=== PATIENT | male | born 1950 | race Caucasian/White ===

== ENCOUNTER 2016-12-28 13:45 | Inpatient (IN) | payer MEDICARE ==
[~2016-12-28] VITALS: Ht 177.8 cm; Wt 52.6 kg
[2016-12-28] VITALS: BP 96/58
[2016-12-28 14:43] LABS: Hematocrit 45.5 % (41.0-53.0); Hemoglobin 15.4 g/dL (13.5-17.5); Mean Corpuscular Hemoglobin 31.5 pg (28.0-32.0); Mean Corpuscular Hgb Conc. 33.9 g/dL (32.0-36.0); Mean Platelet Volume 9.4 fL (7.4-10.4); Platelet Count (auto) 163 10^3/uL (140-450); Red Cell Distribution Width 15.7 % (11.6-16.0); SUSPECT VIEW TRANSMISSION
[2016-12-28] MEDS ORDERED: methylPREDNISolone SOD SUCC 125 MG/2 ML VL IV ONE (14:45)
[2016-12-28] MEDS ORDERED: cefTRIAXone 1GM/50ML D5W 50 ML IV ONE (14:45)
[2016-12-28] MEDS ORDERED: MORPHINE SULF INJ 2 MG/ML SYRINGE 1ML ONE (14:52)
[2016-12-28] MEDS ORDERED: ONDANSETRON HCL 4 MG/2 ML VIAL ONE (14:53)
[2016-12-28 14:56] LABS: INR 1.11 (0.9-1.15); Partial Thromboplastin Time 27.3 sec (22.64-33.71); Prothrombin Time 11.4 sec (9.37-12.3)
[2016-12-28 15:03] LABS: Lactic Acid 3.7 mmol/L (0.4-2.0)
[2016-12-28 15:06] LABS: REFLEX LACTIC ACID YES OR NO YES
[2016-12-28 15:07] LABS: Albumin 2.3 g/dL (3.4-5.0); Alkaline Phosphatase 436 U/L (45-117); Anion Gap 15 (5-15); Aspartate Aminotransferase 316 U/L (15-37); BUN/Creatinine Ratio 31.9; Bilirubin, Total 2.5 mg/dL (0.2-1.0); Blood Urea Nitrogen 22 mg/dL (7-18); Calcium 7.9 mg/dL (8.5-10.1); Carbon Dioxide 27 mmol/L (21-32); Chloride 98 mmol/L (98-107); GFR African American 148 mL/min; GFR Non-African American 122 mL/min; Glucose 76 mg/dL (74-106); Magnesium 2.2 mg/dL (1.6-2.6); Potassium 4.4 mmol/L (3.5-5.1); Sodium 140 mmol/L (136-145); Total Protein 5.8 g/dL (6.4-8.2)
[2016-12-28] MEDS ORDERED: MORPHINE SULFATE 4 MG/ML SYRG IV ONE (15:15)
[2016-12-28] MEDS ORDERED: ONDANSETRON HCL 4 MG/2 ML VIAL IV ONE (15:15)
[2016-12-28] MEDS ORDERED: MORPHINE SULF INJ 2 MG/ML SYRINGE 1ML IV ONE (15:15)
[2016-12-28 15:25] LABS: Urine Bilirubin 1+ (Negative); Urine Blood Negative /uL (Negative); Urine Color Brown (Yellow); Urine Glucose Normal (Normal); Urine Ketone Negative (Negative); Urine Mucus FEW (None Seen); Urine Nitrite Negative (Negative); Urine RBC 1 /hpf (0 - 3); Urine Squamous Epithelial Cell FEW /hpf (<5); Urine pH 5.5 (5.0-8.0)
[2016-12-28 15:30] LABS: Metamyelocytes % 0; Myelocytes % 0; Promyelocytes % 0; Reactive Lymphocytes 0
[2016-12-28 15:50] LABS: Anisocytosis Moderate; Platelet Estimate Adequate
[2016-12-28 17:10] LABS: Lactic Acid 3.8 mmol/L (0.4-2.0)
[2016-12-28 17:11] LABS: REFLEX LACTIC ACID YES OR NO NO
[2016-12-28] MEDS ORDERED: PANTOPRAZOLE 40 MG TAB PO ONE (19:00)
[2016-12-28] MEDS ORDERED: ONDANSETRON HCL 4 MG/2 ML VIAL IV PRN (19:00)
[2016-12-28] MEDS ORDERED: TEMAZEPAM 15 MG CAP PO PRN (19:00)
[2016-12-28] MEDS ORDERED: VANCOMYCIN PER PHARMACY 0 MG IV SCH (19:00)
[2016-12-28] MEDS ORDERED: CLOPIDOGREL BISULFATE 75 MG TAB PO ONE (19:00)
[2016-12-28] MEDS ORDERED: ASPirin-EC 81 mg tab PO ONE (19:00)
[2016-12-28] MEDS ORDERED: NITROGLYCERIN 0.4 MG SL TAB SL PRN (19:00)
[2016-12-28] MEDS ORDERED: LORazepam 2MG/ML-1ML VIAL IV PRN (19:00)
[2016-12-28] MEDS ORDERED: ACETAMINOPHEN 325 MG TAB PO PRN (19:00)
[2016-12-28] MEDS ORDERED: DOCUSATE SOD 100 MG CAP PO PRN (19:00)
[2016-12-28] MEDS ORDERED: MORPHINE SULF INJ 2 MG/ML SYRINGE 1ML IV PRN ×2 (19:00)
[2016-12-28] MEDS ORDERED: VANCOMYCIN 1GM/250ML D5W 250 ML IV ONE (19:15)
[2016-12-28] MEDS: SODIUM CHLORIDE 0.9% 1,000 ML IV SCH (19:17)
[2016-12-28] MEDS: MULTIPLE VITAMIN TAB PO SCH (19:17)
[2016-12-28 19:39] LABS: Lactic Acid 6.6 mmol/L (0.4-2.0)
[2016-12-28 20:11] LABS: REFLEX LACTIC ACID YES OR NO YES
[2016-12-28 21:30] VITALS: BP 121/78
[2016-12-28] MEDS: BOOST PLUS 8 ounce PO SCH (22:00)
[2016-12-28] MEDS ORDERED: FAMOTIDINE 20 MG TAB PO SCH (22:00)
[2016-12-28] MEDS: ATORVASTATIN 20 MG TAB PO SCH (23:18)
[2016-12-28] MEDS: LEVETIRACETAM 500 MG TAB PO SCH (23:18)
[2016-12-28] MEDS: DEXAMETHASONE 4 MG TAB PO SCH (23:18)
[2016-12-29] VITALS (7 sets, daily range): BP systolic 96–120; BP diastolic 58–74
[2016-12-29] MEDS: IPRATROPIUM BROM 0.5 MG/2.5ML INH SOL NEB SCH ×4 (00:50→18:00)
[2016-12-29] MEDS: ALBUTEROL SULF 2.5 MG/0.5ML(0.5%) NEB SOLN NEB SCH ×4 (00:50→18:00)
[2016-12-29 05:02] LABS: Hematocrit 37.5 % (41.0-53.0); Hemoglobin 12.5 g/dL (13.5-17.5); Mean Corpuscular Hemoglobin 31.4 pg (28.0-32.0); Mean Corpuscular Hgb Conc. 33.4 g/dL (32.0-36.0); Mean Corpuscular Volume 94.2 fL (80.0-100.0); Mean Platelet Volume 8.9 fL (7.4-10.4); Platelet Count (auto) 142 10^3/uL (140-450); SUSPECT VIEW TRANSMISSION; White Blood Cell 22.4 10^3/uL (4.4-10.8)
[2016-12-29 05:09] LABS: Metamyelocytes % 0; Myelocytes % 0; Promyelocytes % 0; Reactive Lymphocytes 0
[2016-12-29 05:19] LABS: Albumin 1.8 g/dL (3.4-5.0); Calcium 7.7 mg/dL (8.5-10.1)
[2016-12-29 05:33] LABS: Bilirubin, Total 1.3 mg/dL (0.2-1.0); Total Protein 4.6 g/dL (6.4-8.2)
[2016-12-29 05:37] LABS: Potassium 4.5 mmol/L (3.5-5.1)
[2016-12-29 06:26] LABS: Platelet Estimate Adequate; RBC Morphology Normal
[2016-12-29] MEDS: cefTRIAXone 1GM/50ML D5W 50 ML IV SCH (08:35)
[2016-12-29] MEDS: BOOST PLUS 8 ounce PO SCH ×4 (08:35→21:42)
[2016-12-29] MEDS: MULTIPLE VITAMIN TAB PO SCH (09:40)
[2016-12-29] MEDS: DEXAMETHASONE 4 MG TAB PO SCH ×2 (09:40→21:41)
[2016-12-29] MEDS: ASPirin-EC 81 mg tab PO SCH (09:40)
[2016-12-29] MEDS: CLOPIDOGREL BISULFATE 75 MG TAB PO SCH (09:40)
[2016-12-29] MEDS: LEVETIRACETAM 500 MG TAB PO SCH ×2 (09:40→21:41)
[2016-12-29] MEDS: PANTOPRAZOLE 40 MG TAB PO SCH (09:41)
[2016-12-29] MEDS ORDERED: SPIRIVA IN SCH (10:00)
[2016-12-29] MEDS: SODIUM CHLORIDE 0.9% 1,000 ML IV SCH (11:38)
[2016-12-29] MEDS ORDERED: ENOXAPARIN SOD 40 MG/0.4 ML SYRINGE SC ONE (14:15)
[2016-12-29 14:36] LABS: B-Type Natriuretic Peptide 39.65 pg/mL (0-100)
[2016-12-29 14:50] LABS: Temperature: 22.7 C (20.0-25.0)
[2016-12-29] MEDS ORDERED: SODIUM CHLORIDE 0.9% 1,000 ML IV ONE (15:30)
[2016-12-29] MEDS ORDERED: IOHEXOL 350 MG/ML 100ML IJ ONE (16:10)
[2016-12-29] MEDS: VANCOMYCIN 750 MG in D5W 5% 250 ML IV SCH (20:33)
[2016-12-29] MEDS: HYDROcodone-ACET 5/325MG TAB PO PRN (21:41)
[2016-12-29] MEDS: ATORVASTATIN 20 MG TAB PO SCH (21:41)
[2016-12-30 04:56] VITALS: BP 118/66
[2016-12-30] MEDS: BOOST PLUS 8 ounce PO SCH ×4 (06:17→21:48)
[2016-12-30 09:00] VITALS: BP 107/61
[2016-12-30] MEDS: HYDROcodone-ACET 5/325MG TAB PO PRN ×3 (10:42→21:46)
[2016-12-30] MEDS: MULTIPLE VITAMIN TAB PO SCH (10:42)
[2016-12-30] MEDS: PANTOPRAZOLE 40 MG TAB PO SCH (10:42)
[2016-12-30] MEDS: DEXAMETHASONE 4 MG TAB PO SCH ×2 (10:42→21:47)
[2016-12-30] MEDS: LEVETIRACETAM 500 MG TAB PO SCH ×2 (10:42→21:46)
[2016-12-30] MEDS: ENOXAPARIN SOD 40 MG/0.4 ML SYRINGE SC SCH (10:43)
[2016-12-30] MEDS: ASPirin-EC 81 mg tab PO SCH (10:43)
[2016-12-30] MEDS: CLOPIDOGREL BISULFATE 75 MG TAB PO SCH (10:43)
[2016-12-30] MEDS: cefTRIAXone 1GM/50ML D5W 50 ML IV SCH (10:46)
[2016-12-30 13:00] VITALS: BP 109/69
[2016-12-30] MEDS: VANCOMYCIN 750 MG in D5W 5% 250 ML IV SCH (14:59)
[2016-12-30 17:00] VITALS: BP 114/69
[2016-12-30] MEDS: ALBUTEROL SULF 2.5 MG/0.5ML(0.5%) NEB SOLN NEB SCH ×2 (19:32)
[2016-12-30] MEDS: IPRATROPIUM BROM 0.5 MG/2.5ML INH SOL NEB SCH ×2 (19:32)
[2016-12-30 21:24] VITALS: BP 113/60
[2016-12-30] MEDS: ATORVASTATIN 20 MG TAB PO SCH (21:46)
[2016-12-31] MEDS: IPRATROPIUM BROM 0.5 MG/2.5ML INH SOL NEB SCH ×3 (00:11→11:41)
[2016-12-31] MEDS: ALBUTEROL SULF 2.5 MG/0.5ML(0.5%) NEB SOLN NEB SCH ×3 (00:11→11:41)
[2016-12-31] MEDS: HYDROcodone-ACET 5/325MG TAB PO PRN (04:53)
[2016-12-31 04:57] VITALS: BP 102/56
[2016-12-31] MEDS: BOOST PLUS 8 ounce PO SCH ×2 (06:52→12:39)
[2016-12-31 07:00] LABS: Basophils # (auto) 0 uL; Eosinophils # (auto) 0 uL; Hematocrit 41.1 % (41.0-53.0); Hemoglobin 14.4 g/dL (13.5-17.5); Lymphocytes # (auto) 0.4 uL; Lymphocytes % (auto) 2.1 % (10.0-50.0); Mean Corpuscular Hemoglobin 32.5 pg (28.0-32.0); Mean Corpuscular Volume 92.7 fL (80.0-100.0); Mean Platelet Volume 9.6 fL (7.4-10.4); Monocytes # (auto) 0.5 uL; Neutrophils # (auto) 16.9 uL; Neutrophils % (auto) 94.9 % (37.0-80.0); Platelet Count (auto) 157 10^3/uL (140-450); Red Cell Distribution Width 15.7 % (11.6-16.0); White Blood Cell 17.9 10^3/uL (4.4-10.8)
[2016-12-31 07:25] LABS: BUN/Creatinine Ratio 37.5; Calcium 7.5 mg/dL (8.5-10.1); Potassium 4.2 mmol/L (3.5-5.1)
[2016-12-31 08:00] VITALS: BP 105/61
[2016-12-31] MEDS: VANCOMYCIN 750 MG in D5W 5% 250 ML IV SCH (08:30)
[2016-12-31 09:00] VITALS: BP_SYST 105; BP_SYST 127; BP_DIAS 61; BP_DIAS 71
[2016-12-31] MEDS: ASPirin-EC 81 mg tab PO SCH (09:50)
[2016-12-31] MEDS: DEXAMETHASONE 4 MG TAB PO SCH (09:50)
[2016-12-31] MEDS: ENOXAPARIN SOD 40 MG/0.4 ML SYRINGE SC SCH (09:50)
[2016-12-31] MEDS: cefTRIAXone 1GM/50ML D5W 50 ML IV SCH (09:51)
[2016-12-31] MEDS: CLOPIDOGREL BISULFATE 75 MG TAB PO SCH (09:51)
[2016-12-31] MEDS: LEVETIRACETAM 500 MG TAB PO SCH (09:51)
[2016-12-31] MEDS: PANTOPRAZOLE 40 MG TAB PO SCH (09:51)
[2016-12-31] MEDS: MULTIPLE VITAMIN TAB PO SCH (09:51)
[2016-12-31] MEDS ORDERED: DOXYCYCLINE 100 MG TAB/CAP PO SCH (11:15)
[2016-12-31 12:45] VITALS: BP 105/61
[2016-12-31 13:00] VITALS: BP 120/76
[2016-12-31 17:00] VITALS: BP_SYST 121; BP_SYST 162; BP_DIAS 65; BP_DIAS 76
[2016-12-31] MEDS ORDERED: VANCOMYCIN 750 MG in D5W 5% 250 ML IV SCH (20:00)
== END 2016-12-31 16:05 | disposition home or self-care (01) | DRG 871 ==
LOC: ER 13:45 → DOU IN ICU 13:46 → TELE-WESTW 12-29 17:28 → WEST WING 12-30 11:16
PROVIDERS: ADMIT Internal Medicine; ATTEND Internal Medicine
DX: A41.9 Sepsis, unspecified organism (principal); E43 Unspecified severe protein-calorie malnutrition; J18.9 Pneumonia, unspecified organism; J96.00 Acute respiratory failure, unspecified whether with hypoxia or hypercapnia; C79.31 Secondary malignant neoplasm of brain; J45.901 Unspecified asthma with (acute) exacerbation; J44.1 Chronic obstructive pulmonary disease with (acute) exacerbation; J44.0 Chronic obstructive pulmonary disease with (acute) lower respiratory infection; C78.7 Secondary malignant neoplasm of liver and intrahepatic bile duct; C34.90 Malignant neoplasm of unspecified part of unspecified bronchus or lung; Z68.1 Body mass index [BMI] 19.9 or less, adult; C43.9 Malignant melanoma of skin, unspecified; I10 Essential (primary) hypertension; E83.51 Hypocalcemia; F17.210 Nicotine dependence, cigarettes, uncomplicated; F32.9 Major depressive disorder, single episode, unspecified; F41.9 Anxiety disorder, unspecified; I25.10 Atherosclerotic heart disease of native coronary artery without angina pectoris; Z66 Do not resuscitate; Z74.01 Bed confinement status; Z82.49 Family history of ischemic heart disease and other diseases of the circulatory system; Z85.820 Personal history of malignant melanoma of skin; Z95.5 Presence of coronary angioplasty implant and graft; Z83.6 Family history of other diseases of the respiratory system; Z79.02 Long term (current) use of antithrombotics/antiplatelets
CPT/HCPCS: 36415; 71010; 71275; 80048; 80053; 80202; 81001; 83605; 83735; 83880; 84484; 85007; 85025; 85027; 85379; 85610; 85730; 87040; 87081; 93005; 93306; 94640; 96365; 96367; 96375; J0696; J2405; J7060